=== PATIENT | female | born 1935 | race Caucasian/White ===

== ENCOUNTER 2018-02-16 12:23 | Emergency (ER) | payer OTHER, MEDICAID ==
[~2018-02-16] VITALS: Ht 129.5 cm; Wt 62.0 kg
[2018-02-16 13:04] VITALS: BP 177/61
[2018-02-16] MEDS ORDERED: CARV12.545 PO (13:08)
[2018-02-16] MEDS ORDERED: VALS320T2 PO (13:08)
== END 2018-02-16 15:09 | disposition home or self-care (01) ==
LOC: ER 15:07
DX: H60.92 Unspecified otitis externa, left ear (principal); I10 Essential (primary) hypertension
CPT/HCPCS: 99283